=== PATIENT | female | born 1975 ===

== ENCOUNTER 2019-03-13 09:45 | Emergency (ER) | payer OTHER ==
[~2019-03-13] VITALS: Ht 175.3 cm; Wt 75.7 kg
[~2019-03-13 09:45] MED LIST: PREVACID30 MG PO
[2019-03-13] MEDS ORDERED: CABERGOLINE0.5 MG (10:07)
[2019-03-13] MEDS ORDERED: PROTONIX20 MG (10:07)
== END 2019-03-13 13:10 | disposition home or self-care (01) ==
LOC: ER 09:45
DX: D64.89 Other specified anemias (principal); R42 Dizziness and giddiness; D35.2 Benign neoplasm of pituitary gland; R51 Headache

== ENCOUNTER 2019-04-04 15:42 | Emergency (ER) | payer OTHER ==
[~2019-04-04] VITALS: Ht 175.3 cm; Wt 74.4 kg
[~2019-04-04 15:42] MED LIST changes: +CABERGOLINE0.5 MG; +PROTONIX20 MG
== END 2019-04-04 17:08 | disposition home or self-care (01) ==
LOC: ER 15:42
DX: R51 Headache (principal); D35.2 Benign neoplasm of pituitary gland